=== PATIENT | female | born 1980 | race Caucasian/White ===

== ENCOUNTER → 2017-08-17 | Outpatient (REF) | payer OTHER ==
[2017-08-17 11:32] LABS: MEAN CORPUSCULAR HEMOGLOBIN 30.5 pg (27.0-33.0); MEAN CORPUSCULAR VOLUME 89.7 fl (80.0-96.0); RED CELL DISTRIBUTION WIDTH 12.8 % (11.5-14.5); WHITE BLOOD COUNT 7.1 K/mm3 (4.0-10.0)
[2017-08-17 11:47] LABS: ALBUMIN 3.6 GM/DL (3.2-5.2); ALKALINE PHOSPHATASE 80 U/L (45-117); ALT/SGPT 37 U/L (12-78); ANION GAP 8 MEQ/L (8-16); AST/SGOT 17 U/L (15-37); BILIRUBIN,TOTAL 0.3 MG/DL (0.2-1.0); BLOOD UREA NITROGEN 7 MG/DL (7-18); CALCIUM LEVEL 8.7 MG/DL (8.5-10.1); CARBON DIOXIDE LEVEL 26 MEQ/L (21-32); CHLORIDE LEVEL 108 MEQ/L (98-107); CREATININE FOR GFR 0.67 MG/DL (0.55-1.02); GLOMERULAR FILTRATION RATE > 60.0 (>60); GLUCOSE, FASTING 86 MG/DL (70-105); POTASSIUM SERUM 4.6 MEQ/L (3.5-5.1); SODIUM LEVEL 142 MEQ/L (136-145); TOTAL PROTEIN 6.6 GM/DL (6.4-8.2)
[2017-08-17 11:57] LABS: CONTROL LINE HPYORI INT CTR LINE PRESENT
== END ==
LOC: M SFHCCLAY 09:35
PROVIDERS: ATTEND Family Medicine
DX: R10.13 Epigastric pain (principal)

== ENCOUNTER → 2018-01-14 | Outpatient (REF) | payer OTHER ==
[2018-01-14 17:25] LABS: TOTAL 25(OH) VITAMIN D 16.1 NG/ML (30.0-100.0); VITAMIN B12 LEVEL 390 PG/ML (247-911)
[2018-01-14 17:32] LABS: ALBUMIN 4.2 GM/DL (3.2-5.2); ALBUMIN/GLOBULIN RATIO 1.24 (1.00-1.93); ALKALINE PHOSPHATASE 95 U/L (45-117); ALT/SGPT 36 U/L (12-78); ANION GAP 7 MEQ/L (8-16); AST/SGOT 15 U/L (7-37); BILIRUBIN,TOTAL 0.2 MG/DL (0.2-1.0); BLOOD UREA NITROGEN 8 MG/DL (7-18); CALCIUM LEVEL 9.2 MG/DL (8.5-10.1); CARBON DIOXIDE LEVEL 29 MEQ/L (21-32); CHLORIDE LEVEL 104 MEQ/L (98-107); CREATININE FOR GFR 0.74 MG/DL (0.55-1.30); GLOMERULAR FILTRATION RATE > 60.0 (>60); GLUCOSE, FASTING 87 MG/DL (70-100); POTASSIUM SERUM 4.4 MEQ/L (3.5-5.1); RHEUMATOID FACTOR QUANT < 10.0 IU/ML (0-15.0); SODIUM LEVEL 140 MEQ/L (136-145); TOTAL PROTEIN 7.6 GM/DL (6.4-8.2)
[2018-01-14 18:06] LABS: BASO # 0.1 10^3/uL (0.0-0.2); BASO % 0.9 % (0.0-1.0); EOS # 0.3 10^3/uL (0.0-0.50); EOS % 4.4 % (0.0-3.0); HEMATOCRIT 45.2 % (36.0-47.0); HEMOGLOBIN 15.1 g/dl (12.0-16.0); IMMATURE GRANULOCYTE % 0.3 % (0-3.0); LYMPH # 2.1 10^3/uL (1.5-4.5); LYMPH % 27.5 % (24.0-44.0); MEAN CORPUSCULAR HEMOGLOBIN 29.5 pg (27.0-33.0); MEAN CORPUSCULAR HGB CONC 33.4 g/dl (32.0-36.5); MEAN CORPUSCULAR VOLUME 88.5 fl (80.0-96.0); MONO # 0.8 10^3/uL (0.0-0.8); MONO % 9.6 % (0.0-5.0); NEUTROPHILS # 4.5 10^3/uL (1.8-7.7); NEUTROPHILS % 57.3 % (36.0-66.0); PLATELET COUNT, AUTOMATED 328 10^3/uL (150-450); RED BLOOD COUNT 5.11 10^6/uL (4.00-5.40); RED CELL DISTRIBUTION WIDTH 12.6 % (11.5-14.5); WHITE BLOOD COUNT 7.8 10^3/uL (4.0-10.0)
[2018-01-14 19:04] LABS: ERYTHROCYTE SEDIMENTATION RATE 9 mm/hr (0-20)
[2018-01-15 10:38] LABS: CONTROL LINE MONO INT CTR LINE PRESENT; MONO SCRN NEGATIVE (NEGATIVE)
[2018-01-16 15:10] LABS: ANTINUCLEAR ANTIBODIES DIRECT Negative (Negative); Lyme Disease IgG/IgM Antibodie <0.91 ISR (0.00-0.90); Lyme Disease IgM Ab Quantitati <0.80 index (0.00-0.79)
== END ==
LOC: M SFHCCLAY 10:38
DX: R53.83 Other fatigue (principal); M25.529 Pain in unspecified elbow
CPT/HCPCS: 84443

== ENCOUNTER → 2019-11-15 | Outpatient (REF) | payer OTHER ==
[2019-11-15 11:45] LABS: HEMATOCRIT 45.1 % (36.0-47.0); HEMOGLOBIN 14.9 g/dl (12.0-15.5); MEAN CORPUSCULAR HEMOGLOBIN 29.7 pg (27.0-33.0); MEAN CORPUSCULAR VOLUME 89.8 fl (80.0-96.0); PLATELET COUNT, AUTOMATED 343 10^3/uL (150-450); RED BLOOD COUNT 5.02 10^6/uL (4.00-5.40); WHITE BLOOD COUNT 8.4 10^3/uL (4.0-10.0)
[2019-11-15 12:23] LABS: ALBUMIN 3.8 GM/DL (3.2-5.2); ALT/SGPT 45 U/L (12-78); BILIRUBIN,TOTAL 0.3 MG/DL (0.2-1.0); BLOOD UREA NITROGEN 10 MG/DL (7-18); CARBON DIOXIDE LEVEL 29 MEQ/L (21-32); CHLORIDE LEVEL 106 MEQ/L (98-107); CHOLESTEROL LEVEL 190 MG/DL (<200); CHOLESTEROL RISK RATIO 3.877 (<5); CREATININE FOR GFR 0.74 MG/DL (0.55-1.30); GLOMERULAR FILTRATION RATE > 60.0 (>60); GLUCOSE, FASTING 90 MG/DL (70-100); HDL CHOLESTEROL 49 MG/DL (>40); LDL CHOLESTEROL 110 MG/DL (<100); NON-HDL-C 141 MG/DL; POTASSIUM SERUM 4.8 MEQ/L (3.5-5.1); SODIUM LEVEL 139 MEQ/L (136-145); TOTAL PROTEIN 6.7 GM/DL (6.4-8.2); TRIGLYCERIDES LEVEL 155 MG/DL (<150)
[2019-11-15 13:46] LABS: TOTAL 25(OH) VITAMIN D 29.3 NG/ML (30.0-100.0)
== END ==
LOC: M SFHCCLAY 07:27
PROVIDERS: ATTEND Nurse Practitioner Family
DX: K29.70 Gastritis, unspecified, without bleeding (principal); M54.5 Low back pain; E66.9 Obesity, unspecified; E55.9 Vitamin D deficiency, unspecified

== ENCOUNTER → 2021-09-11 | Outpatient (REF) | payer BC ==
[2021-09-11 16:01] LABS: BASO # 0.1 10^3/uL (0.0-0.2); BASO % 0.7 % (0.0-1.0); EOS # 0.4 10^3/uL (0.0-0.5); EOS % 3.9 % (0.0-3.0); HEMATOCRIT 44.7 % (36.0-47.0); HEMOGLOBIN 14.7 g/dl (12.0-15.5); LYMPH # 3.1 10^3/uL (1.5-5.0); LYMPH % 27.4 % (24.0-44.0); MEAN CORPUSCULAR HEMOGLOBIN 29.6 pg (27.0-33.0); MEAN CORPUSCULAR HGB CONC 32.9 g/dl (32.0-36.5); MEAN CORPUSCULAR VOLUME 90.1 fl (80.0-96.0); MONO # 0.7 10^3/uL (0.0-0.8); MONO % 6.1 % (2.0-8.0); NEUTROPHILS # 6.9 10^3/uL (1.5-8.5); NEUTROPHILS % 61.5 % (36.0-66.0); PLATELET COUNT, AUTOMATED 309 10^3/uL (150-450); RED BLOOD COUNT 4.96 10^6/uL (4.00-5.40); WHITE BLOOD COUNT 11.2 10^3/uL (4.0-10.0)
[2021-09-11 16:42] LABS: ALBUMIN 3.3 GM/DL (3.2-5.2); ALT/SGPT 36 U/L (12-78); BILIRUBIN,TOTAL 0.4 MG/DL (0.2-1.0); BLOOD UREA NITROGEN 7 MG/DL (7-18); CALCIUM LEVEL 8.7 MG/DL (8.5-10.1); CARBON DIOXIDE LEVEL 26 MEQ/L (21-32); CHLORIDE LEVEL 108 MEQ/L (98-107); CHOLESTEROL LEVEL 174 MG/DL (<200); CHOLESTEROL RISK RATIO 3.411 (<5); CREATININE FOR GFR 0.55 MG/DL (0.55-1.30); GLOMERULAR FILTRATION RATE > 60.0 (>58); GLUCOSE, FASTING 74 MG/DL (70-100); HDL CHOLESTEROL 51 MG/DL (>40); LDL CHOLESTEROL 99 MG/DL (<100); NON-HDL-C 123 MG/DL; POTASSIUM SERUM 5.2 MEQ/L (3.5-5.1); SODIUM LEVEL 139 MEQ/L (136-145); TOTAL 25(OH) VITAMIN D 33.7 NG/ML (30.0-100.0); TOTAL PROTEIN 6.3 GM/DL (6.4-8.2); TRIGLYCERIDES LEVEL 118 MG/DL (<150)
== END ==
LOC: M SFHCCAPE 07:41
PROVIDERS: ATTEND Physician Assistant
DX: E78.5 Hyperlipidemia, unspecified (principal); E55.9 Vitamin D deficiency, unspecified

== ENCOUNTER → 2021-09-18 | Outpatient (CLI) | payer BC ==
--- NOTE | 2021-09-18 11:18 | REP ---
INDICATION: RIGHT BREAST ADD VIEWS; ABN MAMMO OF RIGHT BREAST. COMPARISON: Screening mammogram 08/19/2021. TECHNIQUE: Spot compression and tomographic sequences of the right breast performed, as well as focused right breast ultrasound in the posterior upper outer quadrant. FINDINGS: There is a persistent irregular 1 cm nodule posteriorly in the upper outer quadrant of the right breast. The other smaller asymmetry suspected slightly more inferiorly compresses out and appears to represent fibroglandular tissue. Focused right breast ultrasound performed in the posterior upper outer quadrant. A hypoechoic solid nodule is seen at this location. The borders are lobulated. It measures 8 x 6 x 8 mm with average KP a value 33.2 with elastography interrogation. IMPRESSION: BIRADS/ACR category 4, suspicious. Solid nodule posterior upper outer quadrant right breast as discussed above, could represent an intramammary lymph node, but imaging characteristics mammographically and sonographically are not definitive. Recommend ultrasound-guided biopsy with postprocedure mammogram This mammogram was interpreted with the aid of an FDA-approved computer-aided detection system. The patient letter being requested is M4. RECOMMENDATION: Recommend ultrasound-guided biopsy right breast as discussed in detail above. <Electronically signed by Brody Casillas > 09/18/21 [id number]
== END ==
LOC: M WHC 09:10
PROVIDERS: ATTEND Physician Assistant
DX: N63.11 Unspecified lump in the right breast, upper outer quadrant (principal)
CPT/HCPCS: 76641; 77065; G0279

== ENCOUNTER → 2021-10-02 | Outpatient (REF) | payer BC | LOC: M SFHCCAPE 11:21 | PROVIDERS: ATTEND Physician Assistant | DX: Z12.4 Encounter for screening for malignant neoplasm of cervix (principal) | CPT/HCPCS: 87624; G0123 ==

== ENCOUNTER → 2021-10-08 | Outpatient (CLI) | payer BC ==
[~2021-10-08] MED LIST: BENA25CA4 PO
[2021-10-08 13:43] VITALS: BP 126/84
--- NOTE | 2021-10-08 14:02 | REP ---
INDICATION: u/s GUIDED BX ABNORMAL MAMMOGRAM RIGHT BREAST. COMPARISON: 08/19/2021, 09/18/2021. TECHNIQUE: Multiple views right breast performed with tomosynthesis following ultrasound-guided biopsy. FINDINGS: HydroMARK clip is noted at the site of the nodule seen on the recent mammograms in the right axillary tail. IMPRESSION: Successful ultrasound-guided biopsy of nodule in the right axillary tail. There is successful deployment of a HydroMARK clip at the site of the biopsied nodule. RECOMMENDATION: Clinical follow-up. <Electronically signed by Brody Casillas > 10/08/21 2100
--- NOTE | 2021-10-09 17:19 | REP ---
INDICATION: u/s GUIDED BX ABNORMAL MAMMOGRAM RIGHT BREAST. COMPARISON: None. TECHNIQUE: The procedure was performed under the direct supervision of Dr. Casillas. Patient has a history of an 8 x 6 x 8 mm hypoechoic solid nodule in the posterior upper-outer quadrant of the right breast seen on a previous ultrasound dated 09/18/2021. The risks and benefits of the procedure were explained to the patient and informed consent was obtained. The right breast nodule was localized using ultrasound guidance. The skin was prepped and draped in a sterile fashion. 8 mL of 1% Xylocaine was used as a local anesthetic. Using ultrasound guidance a 14-gauge coaxial needle biopsy system was inserted and6 core biopsy samples were obtained. A marker clip (HydroMark shape 4) was placed at the biopsy site The patient tolerated the procedure well and there were no immediate complications. After the appropriate amount of monitored convalescence, the patient was discharged from the department. EBL: Less than 3 mL FINDINGS: None IMPRESSION: Ultrasound-guided right breast biopsy with marker clip placement. (HydroMark shape 4) <Electronically signed by Fadi Franco > 10/09/21 1427 <Electronically signed by Brody Casillas > 10/09/21 [id number]
== END ==
LOC: M WHCPRO 08:40
PROVIDERS: ATTEND Physician Assistant
DX: D24.1 Benign neoplasm of right breast (principal)

== ENCOUNTER → 2021-10-09 | Outpatient (REF) | payer BC ==
[2021-10-09 16:20] LABS: BASO # 0.1 10^3/uL (0.0-0.2); BASO % 0.6 % (0.0-1.0); EOS # 0.4 10^3/uL (0.0-0.5); EOS % 3.5 % (0.0-3.0); HEMATOCRIT 45.7 % (36.0-47.0); HEMOGLOBIN 14.9 g/dl (12.0-15.5); LYMPH # 2.7 10^3/uL (1.5-5.0); LYMPH % 24.9 % (24.0-44.0); MEAN CORPUSCULAR HEMOGLOBIN 29.7 pg (27.0-33.0); MEAN CORPUSCULAR HGB CONC 32.6 g/dl (32.0-36.5); MONO # 0.6 10^3/uL (0.0-0.8); MONO % 5.6 % (2.0-8.0); NEUTROPHILS % 64.9 % (36.0-66.0); PLATELET COUNT, AUTOMATED 312 10^3/uL (150-450); RED BLOOD COUNT 5.02 10^6/uL (4.00-5.40); WHITE BLOOD COUNT 10.7 10^3/uL (4.0-10.0)
[2021-10-09 16:46] LABS: ALBUMIN 3.6 GM/DL (3.2-5.2); ALT/SGPT 34 U/L (12-78); BILIRUBIN,TOTAL 0.3 MG/DL (0.2-1.0); BLOOD UREA NITROGEN 9 MG/DL (7-18); CARBON DIOXIDE LEVEL 30 MEQ/L (21-32); CHLORIDE LEVEL 109 MEQ/L (98-107); CREATININE FOR GFR 0.63 MG/DL (0.55-1.30); GLOMERULAR FILTRATION RATE > 60.0 (>58); GLUCOSE, FASTING 85 MG/DL (70-100); POTASSIUM SERUM 4.7 MEQ/L (3.5-5.1); SODIUM LEVEL 140 MEQ/L (136-145); TOTAL PROTEIN 6.2 GM/DL (6.4-8.2)
== END ==
LOC: M SFHCCAPE 08:47
PROVIDERS: ATTEND Physician Assistant
DX: E87.5 Hyperkalemia (principal)

== ENCOUNTER → 2025-09-13 | Outpatient (CLI) | payer BC | LOC: M WHC 15:49 | PROVIDERS: ATTEND Student in an Organized Health Care Education/Training Program | DX: Z12.31 Encounter for screening mammogram for malignant neoplasm of breast (principal); R92.333 Mammographic heterogeneous density, bilateral breasts ==

== ENCOUNTER → 2025-09-27 | Outpatient (CLI) | payer BC | LOC: M WHC 12:42 | PROVIDERS: ATTEND Student in an Organized Health Care Education/Training Program | DX: Z12.31 Encounter for screening mammogram for malignant neoplasm of breast (principal); N63.10 Unspecified lump in the right breast, unspecified quadrant ==

== ENCOUNTER → 2025-10-11 | Outpatient (CLI) | payer BC ==
[2025-10-11 08:41] VITALS: TEMP 98.5
[2025-10-11 09:50] VITALS: BP 140/92; O2SAT 97
== END ==
LOC: M WHCPRO 08:35
PROVIDERS: ATTEND Student in an Organized Health Care Education/Training Program
DX: N63.11 Unspecified lump in the right breast, upper outer quadrant (principal); R92.8 Other abnormal and inconclusive findings on diagnostic imaging of breast